=== PATIENT | male | born 1990 | race Caucasian/White ===

== ENCOUNTER → 2017-06-19 | Outpatient (CLI) | payer BC ==
--- NOTE | 2017-06-19 14:42 | DIAGNOSTIC IMAGING REPORT ---
ULTRASOUND RIGHT UPPER QUADRANT ABDOMEN CLINICAL HISTORY: Right upper quadrant abdominal pain. COMPARISON STUDY: Abdominal CT dated 10/27/2012. TECHNIQUE: Real-time, grayscale, and color flow sonography of the right upper quadrant of the abdomen was performed. Images are reviewed in the transverse and longitudinal planes. FINDINGS: Liver: The liver is normal in size and echotexture. There is no intrahepatic biliary ductal dilatation. The main portal vein is patent. Gallbladder: The gallbladder is normal in appearance. No gallstones are identified. There is no gallbladder wall thickening or pericholecystic fluid. A sonographic Dow's sign is reportedly absent. The common bile duct measures up to 0.3 cm in diameter. Pancreas: Visualized portions of the pancreatic head and body are normal in appearance. Right kidney: Survey images of the right kidney demonstrate normal size and echotexture. There is no hydronephrosis. Ascites: None. IMPRESSION: Unremarkable sonographic assessment of the right upper quadrant. No gallstones are identified. Electronically signed by: Jordan Al M.D. 06/19/2017 2:41 PM Dictated Date/Time: 06/19/2017 2:39 PM
[2017-06-19 15:22] LABS: BASO % 0.9 %; BASO ABS # 0.07 K/uL (0-0.2); EOS % 5.4 %; EOS ABS # 0.44 K/uL (0-0.5); HEMOGLOBIN 16.7 g/dL (14.0-18.0); IG# 0.02 K/uL (0.00-0.02); LYMPH % 26.4 %; LYMPH ABS # 2.15 K/uL (1.2-3.4); MEAN CELL VOLUME 91.8 fL (80-100); MEAN CORPUSCULAR HEMOGLOBIN 32.6 pg (25-34); MEAN CORPUSCULAR HGB CONC 35.5 g/dl (32-36); MEAN PLATELET VOLUME 10.5 fL (7.4-10.4); MONO % 6.9 %; MONO ABS # 0.56 K/uL (0.11-0.59); NEUT % 60.2 %; PLATELET COUNT 271 K/uL (130-400); RED CELL DISTRIBUTION WIDTH CV 12.5 % (11.5-14.5); RED CELL DISTRIBUTION WIDTH SD 42.4 fL (36.4-46.3); WHITE BLOOD COUNT 8.14 K/uL (4.8-10.8)
[2017-06-19 15:45] LABS: ALBUMIN 4.3 gm/dl (3.4-5.0); ALT/SGPT 51 U/L (12-78); AST/SGOT 13 U/L (15-37); BLOOD UREA NITROGEN 15 mg/dl (7-18); CALCIUM 9.5 mg/dl (8.5-10.1); CARBON DIOXIDE 26 mmol/L (21-32); GLUCOSE 89 mg/dl (70-99); LIPASE 106 U/L (73-393); POTASSIUM 4.4 mmol/L (3.5-5.1); SODIUM 135 mmol/L (136-145)
[2017-06-19 15:48] LABS: ALKALINE PHOSPHATASE 73 U/L (45-117); TOTAL PROTEIN 7.9 gm/dl (6.4-8.2)
[2017-06-19 16:34] LABS: HEP C IGG 13 YRS+OLDER_RFLX NEG (NEG)
[2017-06-22 01:33] LABS: HEPATITIS A IGM TC 51813E NON-REACTIVE (NON-REACTIVE); HEPATITIS B CORE IGM TC51854R NON-REACTIVE (NON-REACTIVE)
== END | disposition home or self-care (01) ==
LOC: C.ULTR 13:56
PROVIDERS: ATTEND Family Medicine
DX: R10.9 Unspecified abdominal pain (principal)